=== PATIENT | male | born 1990 | race Caucasian/White ===

== ENCOUNTER 2017-12-13 13:16 | Day surgery (SDC) | payer OTHER ==
[~2017-12-13] VITALS: Ht 172.7 cm; Wt 90.7 kg
[2017-12-13 12:30] VITALS: BP 125/82
--- OUTSIDE RECORDS SUMMARY | 2017-12-13 13:22 | XMS REPORT ---
Author MILIND Angeles [facility] Address [address] [place], [place] [id number] Care Team Providers Care Patient Relations Director Name Role Phone MILIND DUFFY PCP Unavailable Allergies and Adverse Reactions Name Reaction Notes NO KNOWN DRUG ALLERGIES Plan of Treatment Not available. Medications Active Name Start Date Estimated Completion Date SIG Comments triamcinolone acetonide 0.1 % topical cream 06/18/2014 apply a thin layer to the affected area(s) by topical route 3 times per day EpiPen 0.3 mg/0.3 mL (1:1,000) injection auto-injector 12/08/2014 inject 0.3 milliliter (0.3 mg) by intramuscular route once as needed for anaphylaxis Name Start Date Expiration Date SIG Comments Zithromax Z-Jr 250 mg oral tablet 11/04/2010 11/09/2010 take 2 tablets (500 mg) by oral route once daily for 1 day then 1 tablet (250 mg) by oral route once daily for 4 days hydroxyzine pamoate 25 mg oral capsule 10/06/2013 10/21/2013 take 1 capsule ( 25 mg) by oral route 4 times per day for 15 days Medrol (Jr) 4 mg oral tablets,dose pack 11/01/2014 11/06/2014 take as directed for 5 days Problem List Description Status Onset Allergic Rhinitis, cause unspecified Active Vital Signs Date Time BP-Sys(mm[Hg] BP-Julianne(mm[Hg]) HR(bpm) RR(rpm) Temp WT HT HC BMI BSA BMI Percentile O2 Sat(%) 12/03/2014 2:24:00 PM 120 mmHg 70 mmHg 74 bpm 16 rpm 97.2 F 216 lbs 68 in 32.84 kg/m2 2.17 m2 100 % 11/01/2014 9:55:00 AM 120 mmHg 70 mmHg 88 bpm 18 rpm 98.4 F 214 lbs 68 in 32.5383 kg/m 2.158 m 99 % 10/03/2013 9:46:00 AM 130 mmHg 68 mmHg 70 bpm 16 rpm 97.9 F 208 lbs 67.5 in 32.10 kg/m2 2.12 m2 100 % 04/03/2012 2:39:00 PM 125 mmHg 60 mmHg 95 bpm 18 rpm 98 F 202 lbs 98 % 06/09/2009 4:19:00 PM 118 mmHg 64 mmHg 64 bpm 183 lbs Social History Name Description Comments Alcohol Never Tobacco Never smoker History of Procedures Date Ordered Description Order Status 11/01/2014 12:00 AM Decadron, Per 1 Mg [facility]# [address]-18 Reviewed 11/04/2010 12:00 AM THER/PROPH/DIAG INJ SC/IM Reviewed 11/04/2010 12:00 AM Decadron Inj.8mg-(St.Ed) [facility] #[id number] Reviewed 11/04/2010 12:00 AM Depo-Medrol 80 Mg Im/St Ed [facility] [id number] Reviewed 04/29/2009 12:00 AM IMMUNIZATION ADMIN Reviewed 04/29/2009 12:00 AM IMMUNIZATION ADMIN EACH ADD Reviewed 04/29/2009 12:00 AM TDAP VACCINE 7 YRS/> IM Reviewed 04/29/2009 12:00 AM HEPB VACC PED/ADOL 3 DOSE IM Reviewed 04/03/2012 12:00 AM THER/PROPH/DIAG INJ SC/IM Reviewed 04/03/2012 12:00 AM Decadron, Per 1 Mg [facility]# [address]-50 Reviewed 04/03/2012 12:00 AM Depo-Medrol, Per 80 Mg [facility]#[id number] Reviewed 04/03/2012 12:00 AM Rocephin 1 gram [facility]#0463-6[address]-73 Reviewed 07/04/2009 12:00 AM IMMUNIZATION ADMIN Reviewed 07/04/2009 12:00 AM IMMUNIZATION ADMIN EACH ADD Reviewed 07/04/2009 12:00 AM HEPB VACC PED/ADOL 3 DOSE IM Reviewed 07/04/2009 12:00 AM MENINGOCOCCAL VACCINE SC Reviewed Results Summary Not available. History Of Immunizations Name Date Admin Mfg Name Mfg Code Trade Name Lot# Route Inj Vis Given Vis Pub CVX HepB 04/29/2009 Merck & [employer]., Inc. MSD Recombivax Peds 1601x Intramuscular Right Deltoid 04/29/2009 08/31/2006 999 Tdap 04/29/2009 sanofi pasteur PMC ADACEL [id number] Intramuscular Left Deltoid 04/29/2009 06/30/2006 999 Varicella 04/29/2009 Merck & Co., Inc. MSD Varivax 0809y Subcutaneous Left Arm 04/29/2009 04/27/2007 999 HepB 07/04/2009 [employer]ck [employer] Co., [employer]. MSD Recombivax Peds 1601x Intramuscular Left Deltoid 07/04/2009 08/31/2006 999 Meningococcal 07/04/2009 sanofi pasteur PMC MENOMUNE [id number] Intramuscular Left Arm 07/04/2009 03/13/2007 999 History of Past Illness Name Date of Onset Comments Adacel Apr 29 2009 8:21AM HEP B Apr 29 2009 8:21AM Varicella Apr 29 2009 8:21AM Sprain/Strain Jun 09 2009 4:21PM Tendinitis Jun 09 2009 4:21PM Sprain And Strain Allergic Rhinitis, cause unspecified HEP B Jul 04 2009 8:31AM Meningococcal Jul 04 2009 8:31AM Pharyngitis, Acute Nov 04 2010 10:52AM Cough Apr 03 2012 2:41PM Post-nasal drainage Apr 03 2012 2:41PM Upper Respiratory Infection Apr 03 2012 2:41PM Pityriasis Rosea Oct 03 2013 9:46AM Allergic angioedema Nov 01 2014 9:55AM Bee sting Nov 01 2014 9:55AM Wasp sting Dec 03 2014 2:24PM Payers Insurance Name Company Name Plan Name Plan Number Policy Number Policy Group Number Start Date [facility] [id number] N/A History of Encounters Visit Date Visit Type Provider 12/03/2014 Office visit MILIND MCKEON 11/01/2014 Office visit MILIND MCKEON 10/03/2013 Office visit MILIND MCKEON 04/03/2012 Office visit MILIND MCKEON 11/04/2010 Office visit Milind Duffy PA-C 07/04/2009 Nurse visit Milind Duffy PA-C 06/09/2009 Office visit Milind Duffy PA-C 04/29/2009 Nurse visit Milind Duffy PA-C
--- OUTSIDE RECORDS SUMMARY | 2017-12-13 13:22 | XMS REPORT ---
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 Medications Active Name Start Date Estimated Completion Date SIG Comments triamcinolone acetonide 0.1 % topical cream 06/18/2014 apply a thin layer to the affected area(s) by topical route 3 times per day EpiPen 0.3 mg/0.3 mL injection auto-injector 12/08/2014 inject 0.3 milliliter (0.3 [...] HC BMI BSA BMI Percentile O2 Sat(%) 07/29/2015 4:40:00 PM 142 mmHg 78 mmHg 66 bpm 18 rpm 98.7 F 202 lbs 68 in 30.71 kg/m2 2.10 m2 99 % 12/03/2014 2:24:00 PM 120 mmHg 70 mmHg 74 bpm 16 rpm 97.2 F 216 lbs 68 in 32.8424 kg/m 2.1681 m 100 % 11/01/2014 9:55:00 AM 120 mmHg 70 mmHg 88 bpm 18 rpm 98.4 F 214 lbs 68 in 32.54 kg/m2 2.16 m2 99 % 10/03/2013 9:46:00 AM 130 mmHg 68 mmHg 70 bpm 16 rpm 97.9 F 208 lbs 67.5 in 32.0962 kg/m 2.1197 m 100 % 04/03/2012 2:39:00 PM 125 mmHg 60 mmHg 95 bpm 18 rpm 98 F 202 lbs 98 % 06/09/2009 4:19:00 PM 118 mmHg 64 mmHg 64 bpm 183 lbs Social History Name Description Comments Alcohol Never Tobacco Never smoker History of Procedures Date Ordered Description Order Status 11/01/2014 12:00 AM Decadron, Per 1 Mg [facility]# [address]-61 Reviewed 11/04/2010 12:00 AM THER/PROPH/DIAG INJ SC/IM Reviewed 11/04/2010 12:00 AM Decadron Inj.8mg-(St.De) [facility] #[id number] Reviewed 11/04/2010 12:00 AM Depo-Medrol 80 Mg Im/St Ed [facility] [id number] Reviewed 04/29/2009 12:00 AM IMMUNIZATION ADMIN Reviewed 04/29/2009 12:00 AM IMMUNIZATION ADMIN EACH ADD Reviewed 04/29/2009 12:00 AM TDAP VACCINE 7 YRS/> IM Reviewed 04/29/2009 12:00 AM HEPB VACC PED/ADOL 3 DOSE IM Reviewed 04/03/2012 12:00 AM THER/PROPH/DIAG INJ SC/IM Reviewed 04/03/2012 12:00 AM Decadron, Per 1 Mg [facility]# [address]-82 Reviewed 04/03/2012 12:00 AM Depo-Medrol, Per 80 Mg [facility]#9155-4979-96 Reviewed 04/03/2012 12:00 AM Rocephin 1 gram [facility]#2282-1907-03 Reviewed 07/04/2009 12:00 AM IMMUNIZATION ADMIN Reviewed [...] 999 Tdap 04/29/2009 sanofi pasteur PMC ADACEL [id number] Intramuscular Left Deltoid 04/29/2009 06/30/2006 999 Varicella 04/29/2009 Merck & Co., Inc. MSD Varivax 0809y Subcutaneous Left Arm 04/29/2009 04/27/2007 999 HepB 07/04/2009 Merck & Co., Inc. MSD Recombivax Peds 1601x Intramuscular Left Deltoid 07/04/2009 08/31/2006 999 Meningococcal 07/04/2009 sanofi pasteur PMC MENOMUNE [id number] Intramuscular Left Arm 07/04/2009 03/13/2007 999 History [...] 9:55AM Wasp sting Dec 03 2014 2:24PM Right Optic neuritis Jul 29 2015 4:43PM Payers Insurance Name Company Name Plan Name Plan Number Policy Number Policy Group Number Start Date [facility] [id number] N/A [employer] Insurance w comp N/A History of Encounters Visit Date Visit Type Provider 07/29/2015 Office visit Bobby Adams MD 12/03/2014 Office visit MILIND MCKEON 11/01/2014 Office visit MILIND MCKEON 10/03/2013 Office visit MILIND MCKEON 04/03/2012 Office visit MILIND MCKEON 11/04/2010 Office visit Milind Buenrostro PA-C 07/04/2009 Nurse visit Milind Buenrostro PA-C 06/09/2009 Office visit Milind Buenrostro PA-C 04/29/2009 Nurse visit Milind Buenrostro PA-C
--- OUTSIDE RECORDS SUMMARY | 2017-12-13 13:22 | XMS REPORT | Continuity of Care Document ---
Author Author [facility] Organization [facility] Address Unknown Phone Unavailable Allergies There is no data. Medications There is no data. Problems There is no data. Procedures There is no data. Results There is no data. Encounters ACCT No. Visit Date/Time Discharge Status Pt. Type Provider Facility Loc./Unit Complaint [id number] 12/03/2014 15:00:16 12/03/2014 23:59:59 [facility] Outpatient MERARY DUFFY [id number] 11/01/2014 09:43:26 11/01/2014 23:59:59 [facility] Outpatient MERARY DUFFY [id number] 10/03/2013 10:34:46 10/03/2013 23:59:59 [facility] Outpatient MERARY DUFFY
[2017-12-13] MEDS ORDERED: LACTATED RINGERS 1,000 ML IV SCH (13:45)
[2017-12-13] MEDS ORDERED: LIDOCAINE PF 2% 5 ML (XYLOCAINE) VIAL ONE (14:18)
--- NOTE | 2017-12-13 16:16 | Anesthesia-Procedure Note ---
Procedures/Interventions Procedure Start/Stop/Diagnosis Date of Procedure: Dec 13, 2017 Start Time: 13:50 Referring Physician: Narciso Preprocedural Diagnosis: PDPH Brief History Patient to [facility] and evaluated for PDPH. Patient underwent an LP on Tuesday in [place] for dx of MS. Patient presents with ASHTON typical for those with PDPH, and with supporting history, he is a candidate for an epidural blood patch to relieve the headache. The procedure was explained to the patient and his mother , risks were discussed, consent was signed. 20 g IV with 1000mL LR started in patient's right AC for hydration. Patient was placed in sitting position. Sterile prepped and draped patients back. Epidural kit was utilized, using the sterile prep and drape. 2cc 1% Lido was used to localize at L4-L5. 17g Tuohy was utilized with RICHAR technique. Bone encountered multiple times. Patient complained of discomfort when advancing Tuohy. I localized again with 1% lido at L3-L4. RICHAR was drastic with 17g Touhy at 6cm from skin. Chrissy Wright RN, clive 20 cc blood from the patient's left AC space using strict sterile technique and passed it to me, which I then injected slowly into the epidural space. The patient tolerated the blood injection well and received all 20 cc without any complaints. The patient's back was cleaned, bandaids applied over both sites, and the patient was laid supine. The patient was given a beverage to drink and his mom was brought back into the room. Patient denied complaints. I asked him to lay flat for 20 minutes and then the patient sat up and got dressed. I discussed discharge instructions again with the patient in front of his mother and his , reiterating, no bending, straining, or other activity that could possibly dislodge the clot. The patient demonstrated understanding and he was discharged to home in care of his family. We will be available for further consultation if needed. Stop Time: 14:30 SADIA SOMERS CRNA Dec 13, 2017 16:16
== END 2017-12-13 14:45 | disposition home or self-care (01) ==
LOC: SDC 13:16
PROVIDERS: ATTEND Anesthesiology
DX: G97.1 Other reaction to spinal and lumbar puncture (principal)

== ENCOUNTER 2020-11-08 13:02 | Emergency (ER) | payer BC, OTHER ==
[~2020-11-08] VITALS: Ht 172 cm; Wt 90.7 kg
--- OUTSIDE RECORDS SUMMARY | 2020-11-08 13:07 | XMS REPORT | Clinical Summary ---
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 If you d o not see the information that you expected, contact Release of Information in [facility] Health Information Management department at [phone] for further assistan ce in locating additional records.[facility] Allergies No Known Active Allergies Medications End Date Status Medication Sig Dispensed Refills Start Date Active vitamins, multi Take 1 tablet 0 w/minerals tablet by mouth daily. Active cholecalciferol (VITAMIN Take 2,000 0 D-3) 1,000 units tablet Units by mouth daily. Active ocrelizumab (OCREVUS IV) Administer 0 through vein. Active Problems Problem Noted Date Relapsing remitting multiple sclerosis 09/20/2019 Overview: Formatting of this note might be differ ent from the original. Multiple Sclerosis Subtype: RRMS Last r elapse: 06/2019 Last MRI change: 06/2019 Symptom onset: 2014 Date of Diagnosis: 11/2017 Current DMD: ocrelizumab ( -) Prior Medication failures: fingolimod ( relapse) Last MRI BRAIN 06/2019: 3 new lesions from 9 C-SPINE 08/2019: multifocal nonenhancing lesions CSF + OCBs EDSS (2019): 2.0 L ast Assessment & Plan: Formatting of this note might be differ ent from the original. Clinically stable MS. He nees new neuro imaging, which will serve as a baseline for future comparison. He wish es to get this locally and [facility] significant findings present that warrant therapy change. His labs just p rior to second round of ocrelizumab showed B-cells were low-normal; will mo nitor this closely. Given he is newly on this, would anticipate this co uld be the likely cause. 1. Continue ocrelizumab. 2. Monitoring: - Labs every 3 months - MRI brain w/wo locally; need contrast to evaluate better for more acute lesions 3. Continue vitamin D. 4. Continue exercise. 5. Do recommend he get COVID-19 vaccine , especially prior to travel. Discussed NMSS recommendations on jae remy and practical issues. Medical History Medical History Date Comments Multiple sclerosis (HCC) Optic neuritis 2015 right eye. Has reso lved Family History Medical History Relation Name Comments Diabetes Maternal Grandfather Cancer Maternal Grandmother Arthritis-rheumatoid Other Anushka Crohn's Disease Paternal Grandfather Multiple sclerosis Neg Hx Relation Name Status Comments Maternal Grandfather Maternal Grandmother Other Anushka Alive Cousin Paternal Grandfather Social History Date Tobacco Use Types Packs/Day Years Used Never Smoker Smokeless Tobacco: Never Used Comments Alcohol Use Standard Drinks/Week Yes 0 (1 standard drink = 0.6 o z pure alcohol) Sex Assigned at Date Recorded Not on file Last Filed Vital Signs Reading Time Taken Comments Vital Sign 132/85 06/17/2020 11:30 AM CDT Blood Pressure 76 06/17/2020 11:30 AM CDT Pulse 36.2 C (97.1 F) 06/17/2020 11:30 AM CDT Temperature 16 06/17/2020 11:30 AM CDT Respiratory Rate 100% 05/26/2020 7:38 AM CDT Oxygen Saturation - - Inhaled Oxygen Concentration 95.2 kg (209 lb 12.8 oz) 06/17/2020 11:30 AM CDT Weight 172.7 cm (5' 8") 06/17/2020 11:30 AM CDT Height 31.9 06/17/2020 11:30 AM CDT Body Mass Index Plan of Treatment Health Maintenance Due Date Last Done Comments DTAP/TDAP VACCINES (1 - 2010 Tdap) PHYSICAL (COMPREHENSIVE) 2010 EXAM INFLUENZA VACCINE 09/14/2020 HEPATITIS C SCREENING Completed 09/20/2019 HIV SCREENING Completed 09/20/2019 HPV VACCINES Aged Out No longer eligible based on patient's age to complete this topic Results Not on filefrom Last 3 Months Insurance Type Payer Benefit Subscriber ID Effective Phone Address Plan / Dates Group PPO BCBS [employer] BCBS [employer] [id number] 2018-P [facility] VALERI Advance Directives 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
--- NOTE | 2020-11-08 13:54 | ED General ---
General Chief Complaint: General Problems/Pain Stated Complaint: NEG COVID TEST 3 WKS AGO, TIRED,MUCUS Nursing Triage Note: Pt ambulatory to triage. Pt reports he thought he had COVID approx 3 weeks ago, tested negative. Pt reports s/s improved. Pt reports the last several days he has been very tired, coughing up yellow/green sputum, denies n/v/d, ASHTON. Pt reports had COVID in Feb 2020. COVID vaccinated in July 2020. Pt reports has a hx of MS. Source of Information: Patient Exam Limitations: No Limitations History of Present Illness Date Seen by Provider: Nov 08, 2020 Time Seen by Provider: 13:38 Initial Comments Patient is a 29-year-old male with a history of MS on Ocrevus who presents to the emergency room with a chief complaint of fatigue, occasional cough productive of some yellow sputum. Patient states that he has had symptoms of being "really tired" for the last week. He states that the fatigue reminds of him of when he had Covid in February 2020. He was subsequently vaccinated in August 2020. He denies fevers or chills. He is not short of breath. Minimal sore throat. No earache. No rashes. He does relate a "spider bite" to the upper inner aspect of his right arm from several weeks ago that is healing well. He is not a smoker nor has he been around any smokers. No swelling in his legs or cramping in his calves. Patient denies nausea, vomiting, diarrhea, black or bloody stools or problems with urination. Patient was concerned that he might have Covid. On initial evaluation the patient has completely stable vital signs with oxygen saturations on room air of 97%, no obvious respiratory distress or increased work of breathing is noted. He is not tachycardic he is not hypotensive. All other review of systems reviewed and negative except as stated Timing/Duration: 1 Week Severity: Mild Associated Systoms: Cough (slight yellow sputum) Allergies and Home Medications Allergies Coded Allergies: No Known Drug Allergies (Unverified , 12/13/17) Patient Home Medication List Home Medication List Reviewed: Yes Review of Systems Review of Systems Constitutional: see HPI; No chills, No fever; malaise EENTM: throat pain (mild) Respiratory: cough; No dyspnea on exertion, No hemoptysis; phlegm (yellow); No short of breath Cardiovascular: chest pain ([place] mid sternal with deep breath) Gastrointestinal: no symptoms reported Genitourinary: no symptoms reported Musculoskeletal: no symptoms reported Skin: no symptoms reported Psychiatric/Neurological: No Symptoms Reported All Other Systems Reviewed Negative Unless Noted: Yes Past Sptbbht-Fueqtf-Zvdmhh Hx Patient Social History Tobacco Use?: No Substance use?: No Alcohol Use?: No Pt feels they are or have been: No Immunizations Up To Date First/Initial COVID19 Vaccinat: July 2020 Second COVID19 Vaccination Carlos: August 2020 COVID19 Vaccine Drug And Alcohol Treatment Specialist: Moderna Physical Exam Vital Signs Vital Signs - First Documented 11/08/20 13:18 Temp 37.3 Pulse 85 Resp 20 B/P (MAP) 166/89 (114) Pulse Ox 97 O2 Delivery Room Air Capillary Refill : Height, Weight, BMI Height: 5'8.00" Weight: 200lbs. 0.0oz. 90.847177fc; 30.00 BMI Method: General Appearance: No Apparent Distress, WD/WN Eyes: Bilateral Eye Normal Inspection, Bilateral Eye PERRL, Bilateral Eye EOMI HEENT: PERRL/EOMI, TMs Normal (bilateral serous effiusions), Pharynx Normal Neck: Full Range of Motion, Normal Inspection, Non Tender, Supple Respiratory: Lungs Clear, Normal Breath Sounds, No Accessory Muscle Use, No Respiratory Distress Cardiovascular: Regular Rate, Rhythm, Normal Peripheral Pulses Gastrointestinal: Non Tender, Soft Extremity: Normal Inspection, Normal Range of Motion, Non Tender, No Calf Tenderness Neurologic/Psychiatric: Alert, Oriented x3, No Motor/Sensory Deficits, Normal Mood/Affect Skin: Normal Color, Warm/Dry Progress/Results/Core Measures Suspected Sepsis SIRS Temperature: Pulse: 85 Respiratory Rate: 20 Blood Pressure 166 /89 Mean: 99 Results/Orders Vital Signs/I&O 11/08/20 11/08/20 11/08/20 13:18 13:38 13:57 Temp 37.3 37.3 Pulse 85 92 75 Resp 20 18 18 B/P (MAP) 166/89 (114) 155/71 155/71 Pulse Ox 97 98 96 O2 Delivery Room Air Room Air Room Air Capillary Refill : Blood Pressure Mean: 99 Progress Note : Time: 13:51 Progress Note Patient seen and evaluated, completely nontoxic on presentation. Complains of mild to minimal sore throat, cough productive of yellow sputum. No fevers or chills, no extremity weakness, no shortness of breath. Patient is recommended to take rvxv-htq-nxyacsc Mucinex for his congestion/sputum. Monitor his symptoms closely for any signs of fever or shortness of breath. He is comfortable with this plan of care. Clinically I do not see any utility in Covid screening him as he just had a test 3 weeks ago and he was negative and he is post Covid as well as Covid vaccination. Patient states that he has an appointment scheduled with his primary care provider on Tuesday. He is encouraged to keep this appointment, given good return precautions. He is verbalizing understanding and agreement with plan of care. All questions are sought and answered. Patient is stable for discharge Departure Impression Primary Impression: Bronchitis Disposition: 01 HOME, SELF-CARE Condition: Stable Departure-Patient Inst. Decision time for Depature: 13:53 Referrals: NO,LOCAL PHYSICIAN (PCP) Primary Care Physician Patient Instructions: Acute Bronchitis, Adult (DC) Add. Discharge Instructions: Drink lots of fluids to stay well-hydrated. Take [id number] Mucinex as needed for congestion and to thin secretions. Monitor yourself and symptoms carefully for fever/chills, increasing cough, shortness of breath or any other symptoms concerning for worsening illness. Return to the emergency department for reevaluation if these develop. Please keep your appointment with your primary care provider on Tuesday. REGINE KELLEY MD Nov 08, 2020 13:54
[2020-11-08 13:57] VITALS: BP 155/71
== END 2020-11-08 13:58 | disposition home or self-care (01) ==
LOC: EDUNIT# 13:02 → ER 13:04
DX: J40 Bronchitis, not specified as acute or chronic (principal); Z20.822 Contact with and (suspected) exposure to COVID-19
CPT/HCPCS: 99281